=== PATIENT | female | born 1985 | race Caucasian/White ===

== ENCOUNTER 2023-10-04 10:39 | Emergency (ER) | payer OTHER ==
[~2023-10-04] VITALS: Ht 167.6 cm; Wt 86.4 kg
[2023-10-04] MEDS ORDERED: TYLE650T38 PO (10:51)
[2023-10-04] MEDS: NS 1,000 ML IV ONE (11:56)
[2023-10-04] MEDS: ACETAMINOPHEN TAB 650MG DOSE (2X325MG) PO ONE (11:57)
[2023-10-04 12:06] LABS: BASO % 0.5 % (0.0-1.0); EOS % 0.4 % (0.0-3.0); HEMATOCRIT 39.4 % (36.0-47.0); HEMOGLOBIN 12.5 g/dl (12.0-15.5); LYMPH # 1.1 10^3/uL (1.5-5.0); LYMPH % 18.5 % (24.0-44.0); MEAN CORPUSCULAR HEMOGLOBIN 28.9 pg (27.0-33.0); MEAN CORPUSCULAR HGB CONC 31.7 g/dl (32.0-36.5); MEAN CORPUSCULAR VOLUME 91.2 fl (80.0-96.0); MONO # 0.3 10^3/uL (0.0-0.8); MONO % 5.1 % (2.0-8.0); NEUTROPHILS # 4.3 10^3/uL (1.5-8.5); NEUTROPHILS % 75.1 % (36.0-66.0); PLATELET COUNT, AUTOMATED 276 10^3/uL (150-450); RED BLOOD COUNT 4.32 10^6/uL (4.00-5.40); WHITE BLOOD COUNT 5.7 10^3/uL (4.0-10.0)
[2023-10-04 12:26] LABS: BLOOD UREA NITROGEN 13 MG/DL (9-23); CALCIUM LEVEL 9.5 MG/DL (8.5-10.1); CARBON DIOXIDE LEVEL 29 MMOL/L (20-31); CHLORIDE LEVEL 107 MMOL/L (98-107); GLOMERULAR FILTRATION RATE > 60.0 (>60); GLUCOSE, FASTING 95 MG/DL (60-100); POTASSIUM SERUM 4.7 MMOL/L (3.5-5.1); SODIUM LEVEL 141 MMOL/L (136-145)
[2023-10-04] MEDS ORDERED: ONDA4TAB6 PO (12:59)
[2023-10-04] MEDS ORDERED: FLOM0.4C39 PO (12:59)
[2023-10-04] MEDS ORDERED: PERC5TAB12 PO (12:59)
[2023-10-04] MEDS ORDERED: CEPH500C PO (13:03)
[2023-10-04] MEDS: CEPHALEXIN 500 MG CAP PO ONE (13:05)
[2023-10-04] MEDS: TAMSULOSIN 0.4 MG CAP PO ONE (13:05)
[2023-10-04 13:10] VITALS: BP 136/73; TEMP 98.1; O2SAT 100
== END 2023-10-04 13:13 | disposition home or self-care (01) ==
LOC: M ED 10:39
DX: N20.1 Calculus of ureter (principal); Z98.84 Bariatric surgery status